=== PATIENT | female | born 1995 | race Caucasian/White ===

== ENCOUNTER 2018-07-09 08:46 | Observation (INO) | payer OTHER ==
[~2018-07-09] VITALS: Ht 154.9 cm; Wt 79.8 kg
[2018-07-24] MEDS ORDERED: PREN1TAB80 PO (10:35)
[2018-07-24 10:36] VITALS: BP 142/96
[2018-07-24 11:47] LABS: BASOPHILS % (AUTO) 0.4 % (0.0-2.0); EOSINOPHILS % (AUTO) 0.7 % (1.0-6.0); HEMATOCRIT 33.3 % (36-46); LYMPHOCYTES # (AUTO) 1.8 K/uL (1.0-4.8); LYMPHOCYTES % (AUTO) 24.8 % (22.0-44.0); MEAN CORPUSCULAR HEMOGLOBIN 24.3 pg (26.0-34.0); MEAN CORPUSCULAR VOLUME 74 fL (80-100); MONOCYTES # (AUTO) 0.6 K/uL (0.1-1.0); MONOCYTES % (AUTO) 8.5 % (2.0-9.0); NEUTROPHILS # (AUTO) 4.7 K/uL (1.8-7.7); NEUTROPHILS % (AUTO) 65.6 % (40.0-70.0); PLATELET COUNT (AUTO)-OB 240 K/uL (150-450); RED BLOOD CELL COUNT(AUTO) 4.53 MIL/uL (4.00-5.20); RED CELL DISTRIBUTION WIDTH 17.2 % (11.5-14.5)
[2018-07-24 12:05] LABS: ANION GAP 12 mmol/L (8-16); CALCIUM, TOTAL 9.1 mg/dL (8.8-10.5); CARBON DIOXIDE 23 mmol/L (22-29); CHLORIDE 101 mmol/L (98-107); CREATININE 0.68 mg/dL (0.60-1.30); GLOMERULAR FILTR. RATE CALC > 60 mL/min (>60); GLUCOSE,RANDOM 85 mg/dL (70-110); POTASSIUM 4.1 mmol/L (3.5-5.1); SODIUM SERUM 136 mmol/L (136-145); UREA NITROGEN, BLOOD 10 mg/dL (7-18)
[2018-07-24 12:14] LABS: ALANINE AMINOTRANSFERASE 18 U/L (12-78); ALBUMIN 2.5 g/dL (3.4-5.0); ALKALINE PHOSPHATASE 277 U/L (46-116); ASPARTATE AMINOTRANSFERASE 22 U/L (15-37); BILIRUBIN,TOTAL 0.2 mg/dL (0.1-1.0); TOTAL PROTEIN, SERUM 7.1 g/dL (6.4-8.2); URIC ACID 4.7 mg/dL (2.6-7.2)
== END 2018-07-24 13:30 | disposition home or self-care (01) ==
LOC: UNDOADMOB 08:46 → 4S 08:46 → UNDOADMOB 07-24 10:10 → 4S 07-24 10:10 → UNDODISOB 07-24 13:30
PROVIDERS: ADMIT Obstetrics & Gynecology; ATTEND Obstetrics & Gynecology
DX: O26.893 Other specified pregnancy related conditions, third trimester (principal); R03.0 Elevated blood-pressure reading, without diagnosis of hypertension; Z3A.38 38 weeks gestation of pregnancy
CPT/HCPCS: 36415; 80053; 84550; 85025; G0378

== ENCOUNTER 2018-07-29 12:56 | Inpatient (IN) | payer OTHER ==
[~2018-07-29] VITALS: Ht 157.5 cm; Wt 80.7 kg
[~2018-07-29 12:56] MED LIST: PREN1TAB80 PO
[2018-07-29 14:29] LABS: BASOPHILS % (AUTO) 0.2 % (0.0-2.0); EOSINOPHILS % (AUTO) 1.3 % (1.0-6.0); HEMOGLOBIN 10.7 g/dL (12.0-16.0); LYMPHOCYTES # (AUTO) 1.6 K/uL (1.0-4.8); LYMPHOCYTES % (AUTO) 23.1 % (22.0-44.0); MEAN CORPUSCULAR HEMOGLOBIN 23.8 pg (26.0-34.0); MEAN CORPUSCULAR HGB CONC 32.4 G/dL (31.0-37.0); MEAN CORPUSCULAR VOLUME 74 fL (80-100); MONOCYTES # (AUTO) 0.7 K/uL (0.1-1.0); MONOCYTES % (AUTO) 9.4 % (2.0-9.0); NEUTROPHILS # (AUTO) 4.6 K/uL (1.8-7.7); PLATELET COUNT (AUTO)-OB 227 K/uL (150-450); RED BLOOD CELL COUNT(AUTO) 4.49 MIL/uL (4.00-5.20)
[2018-07-29 14:41] LABS: ANION GAP 14 mmol/L (8-16); CALCIUM, TOTAL 9.2 mg/dL (8.8-10.5); CARBON DIOXIDE 19 mmol/L (22-29); CHLORIDE 103 mmol/L (98-107); CREATININE 0.51 mg/dL (0.60-1.30); GLOMERULAR FILTR. RATE CALC > 60 mL/min (>60); GLUCOSE,RANDOM 113 mg/dL (70-110); POTASSIUM 3.9 mmol/L (3.5-5.1); SODIUM SERUM 136 mmol/L (136-145); UREA NITROGEN, BLOOD 9 mg/dL (7-18)
[2018-07-29 14:43] VITALS: BP 139/86
[2018-07-29 14:47] LABS: ALANINE AMINOTRANSFERASE 16 U/L (12-78); ALBUMIN 2.4 g/dL (3.4-5.0); ALKALINE PHOSPHATASE 278 U/L (46-116); ASPARTATE AMINOTRANSFERASE 16 U/L (15-37); BILIRUBIN,TOTAL 0.2 mg/dL (0.1-1.0); TOTAL PROTEIN, SERUM 6.9 g/dL (6.4-8.2); URIC ACID 4.3 mg/dL (2.6-7.2)
[2018-07-29] MEDS ORDERED: RINGERS SOLUTION,LACTATED 1,000 ML IV PRN (15:38)
[2018-07-29] MEDS ORDERED: OXYTOCIN 30 UNITS/LACT RINGERS 500 ML IV ONE (15:38)
[2018-07-29] MEDS ORDERED: LIDOCAINE/PF 1% 30 ML VIAL INJ PRN (15:45)
[2018-07-29] MEDS ORDERED: METHYLERGONOVINE MALEATE 0.2 MG/ML VIAL IM PRN (15:45)
[2018-07-29] MEDS ORDERED: METOCLOPRAMIDE HCL 5 MG/ML 2 ML VIAL IVP PRN (15:45)
[2018-07-29] MEDS ORDERED: CITRIC ACID/SODIUM CITRATE 30 ML SOLUTION UDCUP PO PRN (15:45)
[2018-07-29] MEDS ORDERED: DINOPROSTONE 10 MG VAGINAL SUPPOSITORY VG ONE (16:00)
[2018-07-29] MEDS ORDERED: PNV11TAB PO (16:09)
[2018-07-29] MEDS: RINGERS SOLUTION,LACTATED 1,000 ML IV SCH (17:40)
[2018-07-29] MEDS ORDERED: OXYGEN THERAPY IH SCH (20:00)
[2018-07-30] MEDS: RINGERS SOLUTION,LACTATED 1,000 ML IV SCH ×4 (00:15→19:23)
[2018-07-30] MEDS ORDERED: -PHARMACY NOTE- MISC ONE (04:00)
[2018-07-30] MEDS: FentaNYL CITRATE-PF 100 MCG/2 ML VIAL IVP PRN ×2 (04:21→04:28)
[2018-07-30] MEDS ORDERED: ROPIVACAINE HCL/PF 0.2% 100 ML ED ONE (06:55)
[2018-07-30] MEDS ORDERED: DiphenhydrAMINE HCL 50 MG/ML VIAL IVP PRN (08:00)
[2018-07-30] MEDS ORDERED: NALBUPHINE HCL 10 MG/ML VIAL IVP PRN (08:00)
[2018-07-30] MEDS ORDERED: ONDANSETRON HCL 4 MG/2 ML VIAL IVP PRN (08:00)
[2018-07-30] MEDS ORDERED: OXYTOCIN 30 UNITS/LACT RINGERS 500 ML IV PRN (09:19)
[2018-07-30] MEDS: ROPIVACAINE HCL/PF 0.2% 100 ML ED PRN ×2 (14:26→20:27)
[2018-07-31] MEDS ORDERED: LANOLIN 7 GM OINTMENT TP PRN (00:30)
[2018-07-31] MEDS ORDERED: OxyCODONE HCL/ACETAMINOPHEN 5-325 MG TABLET PO PRN (00:30)
[2018-07-31] MEDS ORDERED: BENZOCAINE 20%/MENTHOL 56 GM SPRAY CANISTER TP PRN (00:30)
[2018-07-31] MEDS ORDERED: *CLINICAL-GENTAMICIN DOSING CLINICAL ONE (00:30)
[2018-07-31] MEDS: RINGERS SOLUTION,LACTATED 1,000 ML IV SCH (00:47)
[2018-07-31] MEDS ORDERED: AMPICILLIN SODIUM 2 GM/NS 100 ML IV ONE (01:06)
[2018-07-31] MEDS ORDERED: ACETAMINOPHEN 1000 MG/ISO-OSM 100 ML IV ONE (01:15)
[2018-07-31] MEDS: AMPICILLIN SODIUM 2 GM/NS 100 ML IV SCH ×4 (01:50→18:41)
[2018-07-31] MEDS: GLYCERIN/WITCH HAZEL LEAF 40 PADS JAR TP PRN (01:58)
[2018-07-31] MEDS: GENTAMICIN 120 MG/NACL ISO-OSM 100 ML IV SCH ×3 (02:45→18:04)
[2018-07-31] MEDS: IBUPROFEN 600 MG TABLET PO PRN ×3 (06:33→21:11)
[2018-07-31 06:40] LABS: ANION GAP 12 mmol/L (8-16); CALCIUM, TOTAL 8.7 mg/dL (8.8-10.5); CARBON DIOXIDE 21 mmol/L (22-29); CHLORIDE 105 mmol/L (98-107); CREATININE 0.93 mg/dL (0.60-1.30); GLOMERULAR FILTR. RATE CALC > 60 mL/min (>60); GLUCOSE,RANDOM 139 mg/dL (70-110); POTASSIUM 3.5 mmol/L (3.5-5.1); SODIUM SERUM 138 mmol/L (136-145); UREA NITROGEN, BLOOD 12 mg/dL (7-18)
[2018-07-31] MEDS ORDERED: SENNA 187 MG TABLET PO SCH (09:00)
[2018-07-31] MEDS: SENNA/DOCUSATE SODIUM 8.6-50 MG TABLET PO SCH ×2 (09:35→21:10)
[2018-07-31] MEDS: OxyCODONE HCL/ACETAMINOPHEN 5-325 MG TABLET PO PRN ×3 (09:44→21:10)
[2018-07-31] MEDS: MAGNESIUM HYDROXIDE SUSPENSION 30 ML UDCUP PO PRN (21:10)
[2018-08-01] MEDS: AMPICILLIN SODIUM 2 GM/NS 100 ML IV SCH ×3 (00:39→12:34)
[2018-08-01] MEDS: GENTAMICIN 120 MG/NACL ISO-OSM 100 ML IV SCH ×2 (02:12→10:01)
[2018-08-01] MEDS: RINGERS SOLUTION,LACTATED 1,000 ML IV SCH (06:25)
[2018-08-01 06:26] LABS: BASOPHILS % (AUTO) 0.1 % (0.0-2.0); EOSINOPHILS % (AUTO) 1.8 % (1.0-6.0); HEMATOCRIT 24.3 % (36-46); HEMOGLOBIN 8.3 g/dL (12.0-16.0); LYMPHOCYTES # (AUTO) 2.6 K/uL (1.0-4.8); LYMPHOCYTES % (AUTO) 21.3 % (22.0-44.0); MEAN CORPUSCULAR HEMOGLOBIN 24.8 pg (26.0-34.0); MEAN CORPUSCULAR VOLUME 73 fL (80-100); MONOCYTES % (AUTO) 7.8 % (2.0-9.0); NEUTROPHILS # (AUTO) 8.4 K/uL (1.8-7.7); PLATELET COUNT (AUTO)-OB 176 K/uL (150-450); RED BLOOD CELL COUNT(AUTO) 3.33 MIL/uL (4.00-5.20); RED CELL DISTRIBUTION WIDTH 17.5 % (11.5-14.5)
[2018-08-01 06:31] LABS: ANION GAP 7 mmol/L (8-16); CALCIUM, TOTAL 8.3 mg/dL (8.8-10.5); CARBON DIOXIDE 25 mmol/L (22-29); CHLORIDE 109 mmol/L (98-107); CREATININE 0.74 mg/dL (0.60-1.30); GLOMERULAR FILTR. RATE CALC > 60 mL/min (>60); GLUCOSE,RANDOM 69 mg/dL (70-110); POTASSIUM 3.7 mmol/L (3.5-5.1); SODIUM SERUM 141 mmol/L (136-145); UREA NITROGEN, BLOOD 13 mg/dL (7-18)
[2018-08-01] MEDS: OxyCODONE HCL/ACETAMINOPHEN 5-325 MG TABLET PO PRN ×2 (06:57→10:33)
[2018-08-01] MEDS: IBUPROFEN 600 MG TABLET PO PRN (06:58)
[2018-08-01] MEDS: MAGNESIUM HYDROXIDE SUSPENSION 30 ML UDCUP PO PRN (09:01)
[2018-08-01] MEDS: GLYCERIN/WITCH HAZEL LEAF 40 PADS JAR TP PRN (09:01)
[2018-08-01] MEDS: SENNA/DOCUSATE SODIUM 8.6-50 MG TABLET PO SCH (10:02)
[2018-08-01] MEDS ORDERED: DSS100 PO (12:47)
[2018-08-01] MEDS ORDERED: IBUP-2070 PO (12:47)
== END 2018-08-01 14:00 | disposition home or self-care (01) | DRG 806 ==
LOC: INTOOBSV 12:56 → 4S 12:56 → OBSVTOIN 12:56
PROVIDERS: ADMIT Obstetrics & Gynecology; ATTEND Obstetrics & Gynecology
PROC: 10D07Z6 Extraction of Products of Conception, Vacuum, Via Natural or Artificial Opening (ICD-10-PCS; principal; 2018-07-30)
PROC: 0W8NXZZ Division of Female Perineum, External Approach (ICD-10-PCS; 2018-07-30)
PROC: 3E0R3BZ Introduction of Anesthetic Agent into Spinal Canal, Percutaneous Approach (ICD-10-PCS; 2018-07-30)
PROC: 00HU33Z Insertion of Infusion Device into Spinal Canal, Percutaneous Approach (ICD-10-PCS; 2018-07-30)
PROC: 3E0P7VZ Introduction of Hormone into Female Reproductive, Via Natural or Artificial Opening (ICD-10-PCS; 2018-07-30)
PROC: 3E033VJ Introduction of Other Hormone into Peripheral Vein, Percutaneous Approach (ICD-10-PCS; 2018-07-30)
DX: O32.8XX0 Maternal care for other malpresentation of fetus, not applicable or unspecified (principal); O75.2 Pyrexia during labor, not elsewhere classified; Z37.0 Single live birth; O70.20 Third degree perineal laceration during delivery, unspecified; O63.1 Prolonged second stage (of labor); O16.4 Unspecified maternal hypertension, complicating childbirth; Z3A.39 39 weeks gestation of pregnancy
CPT/HCPCS: 76811; 84550; 86850; 86900; 86901; J0131; J0290; J1580; J2590; J2795; J3010; J3490; J7120